=== PATIENT | male | born 1970 | race Caucasian/White ===

== ENCOUNTER → 2019-11-02 | Outpatient (CLI) | payer OTHER ==
[~2019-11-02] MED LIST: BAYER ASPIRIN C81 MG; DOXYCYCLINE MO100 MG PO; FLONASE0.05 MG/AC NS; MOTRIN800 MG PO; ROBITUSSIN AC 110 ML PO; TRAMADOL HCL50 MG PO; VALIUM2 MG PO; VICO10300 PO
== END | disposition home or self-care (01) ==
LOC: RAD 11:32
DX: M25.562 Pain in left knee (principal)

== ENCOUNTER → 2021-04-28 | Outpatient (CLI) | payer OTHER ==
[2021-04-29 12:07] LABS: PROSTATE SPECIFIC AG FREE 0.14 ng/mL
[2021-04-29 13:07] LABS: PROSTATE SPECIFIC AG, SERUM 0.4 ng/mL (0.0-4.0)
[2021-05-02 20:08] LABS: TESTOSTERONE FREE, (DIRECT) 6.4 pg/mL (7.2-24.0)
== END | disposition home or self-care (01) ==
LOC: LAB 08:54
PROVIDERS: ATTEND Family Medicine
DX: N52.9 Male erectile dysfunction, unspecified (principal); R35.0 Frequency of micturition

== ENCOUNTER → 2021-06-09 | Outpatient (CLI) | payer OTHER ==
[2021-06-09 07:37] LABS: HEMATOCRIT 47.9 % (42.0-52.0); MEAN CELL VOLUME 89.2 fl (80.0-94.0); MEAN CORPUSCULAR HGB 29.1 pg (27.0-31.0); MEAN CORPUSCULAR HGB CONC 32.6 g/dl (33.0-37.0); MEAN PLATELET VOLUME 11.5 fl (9.6-12.3); RED BLOOD COUNT 5.37 10*6/uL (4.50-5.90); RED CELL DISTRI WIDTH 14.3 % (0-14.5); WHITE BLOOD COUNT 6.7 10*3/uL (4.8-10.8)
[2021-06-13 19:06] LABS: TESTOSTERONE FREE, (DIRECT) 7.6 pg/mL (7.2-24.0)
== END | disposition home or self-care (01) ==
LOC: LAB 06:54
PROVIDERS: ATTEND Family Medicine
DX: R53.83 Other fatigue (principal); E29.1 Testicular hypofunction